=== PATIENT | female | born 1995 | race Caucasian/White ===

== ENCOUNTER 2022-02-23 12:58 | Outpatient (REF) | payer OTHER, SELFPAY ==
--- NOTE | ~2022-02-23 | US_ITS ---
EXAMINATION: US PELVIS CLINICAL INFORMATION: Cramping. Bloating. History of polycystic ovarian syndrome. COMPARISON: None TECHNIQUE: Ultrasound of the pelvis is performed using both transabdominal and transvaginal transducers along with Doppler. Transvaginal imaging is performed due to inadequate visualization transabdominally. FINDINGS: The uterus is anteverted and retroflexed and measures 7 x 3.1 x 3.4 cm in dimension. No focal uterine lesion is seen. Endometrial thickness is normal measuring 0.8 cm. The right ovary is slightly enlarged and measures 4.9 x 2.2 x 3.9 cm. The left ovary is normal in size and measures 3.6 x 1.5 x 4 cm. There are multiple small peripheral cysts or follicles seen in the ovaries and echogenic central stroma suggestive of polycystic ovarian syndrome. There is a 1.9 x 1.3 x 1.6 cm simple cyst or dominant follicle in the left ovary. There is a small amount of fluid in the pelvis. US/US pelvic and transvaginal IMPRESSION: Polycystic appearance of the ovaries. Normal-appearing uterus.
== END 2022-02-23 12:59 | disposition home or self-care (01) ==
LOC: HO.HMGCX 12:58
PROVIDERS: Visit Provider Advanced Practice Midwife
DX: R10.2 Pelvic and perineal pain (principal); R14.0 Abdominal distension (gaseous); E28.2 Polycystic ovarian syndrome
CPT/HCPCS: 76830; 76856

== ENCOUNTER 2022-06-23 10:18 | Outpatient (REF) | payer OTHER, SELFPAY ==
[2022-06-23 14:25] LABS: Hematocrit 41.4 % (37.0-47.0); Mean Corpuscular HGB Conc 31.4 g/dl (31.0-35.0); Mean Corpuscular Hemoglobin 26.3 pg (27.0-33.0); Mean Corpuscular Volume 83.8 fL (80.0-98.0); Mean Platelet Volume 10.1 fL (9.4-12.3); Platelet Count 287 X10*3/uL (160-400); Red Blood Count 4.94 X10*6/uL (4.20-5.50); Red Cell Distribution Width 12.8 % (11.0-16.0); White Blood Count 7.4 X10*3/uL (4.8-10.8)
[2022-06-23 14:38] LABS: Alanine Aminotransferase 29 U/L (0-31); Albumin Level 4.5 g/dL (3.5-5.0); Alkaline Phosphatase 46 U/L (39-117); Anion Gap 14 (12-20); Aspartate Amino Transferase 22 U/L (5-31); Bilirubin Total 0.5 mg/dL (0.0-1.0); Blood Urea Nitrogen 12 mg/dL (9-16); Calcium 9.1 mg/dL (8.4-10.2); Carbon Dioxide 26 mmol/L (22-29); Chloride 106 mmol/L (96-108); Cholesterol 161 mg/dL; Estimated Glomerular Filt Rate > 60; Glucose Fasting 90 mg/dL (60-99); HDL Cholesterol 41 mg/dL; LDL Cholesterol Calculated 100 mg/dl; Potassium 4.3 mmol/L (3.3-5.1); Sodium 142 mmol/L (135-145); Total Protein 7.4 g/dL (6.5-8.0); Triglycerides 102 mg/dL
[2022-06-23 14:48] LABS: TSH reflex Free T4 0.99 uIU/mL (0.32-4.0)
== END 2022-06-23 10:19 | disposition home or self-care (01) ==
LOC: HO.WFDLDS 10:18
PROVIDERS: Visit Provider Hospitalist
DX: Z00.00 Encounter for general adult medical examination without abnormal findings (principal)
CPT/HCPCS: 36415; 80053; 80061; 84443; 85027

== ENCOUNTER 2023-07-24 16:55 | Emergency (ER) | payer OTHER, SELFPAY ==
[2023-07-24 17:24] VITALS: BP 115/81; PULSE 69; RESP 18; TEMP 36.2; O2SAT 96; BMI 31.1
--- NOTE | 2023-07-24 17:27 | ED.GENADULT ---
HPI - General Adult General Chief complaint: General Medical Stated complaint: jaw pain Time Seen by Provider: 07/24/23 17:34 Source: patient Mode of arrival: ambulatory Limitations: no limitations History of Present Illness HPI narrative: 28 yo female previously healthy here with right sided jaw pain since yesterday worsened with opening her mouth. patient reports she tends to hold tension in her job. She is supposed to wear mouth car but she is not compliant with this. She does feel some right-sided jaw pain with radiation to the posterior right throat. No additional URI symptoms. No fevers or chills. No injury or trauma to the jaw. Related Data Home Medications Medication Instructions Recorded Confirmed medroxyprogesterone 10 mg tablet 10 mg PO DAILY 12/02/22 12/09/22 Previous Rx's Medication Instructions Recorded ibuprofen 800 mg tablet 800 mg PO Q8H #90 tabs 03/17/22 fluticasone propionate 50 2 spray intranasal DAILY 1 month 08/26/22 mcg/actuation nasal #16 grams spray,suspension (Allergy Relief (fluticasone)) loratadine 10 mg tablet (Allergy 10 mg PO DAILY #90 tabs 08/26/22 Relief (loratadine)) diazepam 2 mg tablet (Valium) 2 mg PO BID PRN muscle spasm #5 07/24/23 tabs ibuprofen 800 mg tablet 800 mg PO Q8H PRN pain #30 tabs 07/24/23 Allergies Allergy/AdvReac Type Severity Reaction Status Date / Time No Known Allergies Allergy Verified 07/24/23 17:24 Review of Systems Review of Systems: Yes all other systems are reviewed and are negative Constitutional: Constitutional: Reports no additional constitutional complaints, Denies body ache(s), Denies chills, Denies fever(s), Denies headache(s) and Denies weakness Eyes: Eyes: Reports no additional eye complaints and Denies change in vision ENT: Reports system reviewed and no additional complaints, except as documented, Denies dizziness, Denies headache(s), Denies nasal congestion, Denies nasal discharge, Denies neck pain and Reports other (jaw pain) Cardiovascular: Cardiovascular: Reports no additional cardiovascular complaints, Denies chest pain, Denies leg edema and Denies dyspnea Respiratory: Respiratory: Reports no additional respiratory complaints, Denies cough and Denies dyspnea Gastrointestinal: Gastrointestinal: Reports no additional gastrointestinal complaints, Denies abdominal pain, Denies diarrhea, Denies nausea and Denies vomiting Genitourinary: Genitourinary: Reports no additional female genitourinary complaints and Denies urinary incontinence Musculoskeletal: Musculoskeletal: Reports no additional musculoskeletal complaints, Denies back pain, Denies arthralgias, Denies joint swelling, Denies neck pain, Denies numbness and Denies tingling Integumentary/Breasts: Skin/Breast: Reports system reviewed and no additional complaints, except as docu and Denies rash Neurologic: Reports system reviewed and no additional complaints, except as documented, Denies Abnormal speech present, Denies dizziness, Denies headache(s), Denies numbness, Denies tingling and Denies weakness PMFSH Past Medical History Attestation statement: The following information was validated with the patient. Source: old records reviewed and nursing notes reviewed Surgical History History of lumpectomy of left breast Family History Family History Father Diabetes Asthma Hypertension Other No family history of mental disorder Social History Social History Household Members: Spouse Housing: Apartment Alcohol intake: never Patient Tobacco Use Status: Never used Tobacco e-Cigarette/Vaping Use: Never Used Advance Directives: No Advance Directives Information Provided: No Current occupational status: employed Current occupation: Human resources in [employer] Physical Exam ED Vital Signs: Vital Signs - 24 hr 07/24/23 17:24 Temperature 97.2 F Pulse Rate 69 Respiratory Rate 18 Blood Pressure 115/81 Pulse Oximetry 96 Oxygen Delivery Method Room Air BMI result Body Mass Index 31.1 Const General: cooperative Orientation/consciousness: patient oriented x3 Limitations: no limitations HENMT Head: Yes normal to inspection Ears: hearing grossly normal bilaterally and TM's normal bilaterally General nose exam: Normal external nose present Face and sinus: Yes normal facial exam Mouth: Normal oral and palatal mucosa present and other ( Tenderness to the right TMJ with no trismus) Throat: Yes posterior oropharynx normal, Yes tonsils normal and Yes uvula midline Eyes General: appearance normal, both eyes and all related structures Pupils: Equal, round and reactive pupils present Neck Neck: Yes normal visual inspection, Yes full ROM and Yes no lymphadenopathy Chest Chest palpation & inspection: normal inspection of the chest Resp Effort & Inspection: normal respiratory effort Auscultation: clear to auscultation bilaterally Cardio Rate: regular rate Rhythm: regular rhythm Peripheral pulses: Peripheral pulses 2+ throughout GI Inspection: Yes normal to inspection Palpation (GI): Soft to palpation and nontender Auscultation: normal bowel sounds Back/Spine/Pelvis Thoracic/Lumbar Spine: thoracic and lumbar spine normal to inspection Skin General skin exam: no rashes or lesions noted Neuro General: patient oriented x3, no focal motor deficits and normal sensation to monofilament Cranial nerves: Yes Equal, round and reactive pupils present Cognition (Neuro): normal cognition Speech: No Abnormal speech present Gait exam (Neuro): Normal gait present Motor exam (neuro): 5/5 motor strength present throughout Extrem General: Yes normal to inspection Course Course Course Narrative: RME: 28 yold female presents to the ED for RIght jaw pain. Patient states unable to open mouth all the way. patient states she usually clenches/grind her teeth while sleeping and woke up not able to open her mouth. patient denies any trauma, fever, chills, troubleing swalloing, or clicking sound of jaw. Positive on exam for slight swelling near jaw. no fluctulance on exam. To be asses in [facility]. Patient able to close and open mouth detention Medications Administered Discontinued Medications Generic Name Dose Route Start Last Admin Trade Name Franciscoq PRN Reason Stop Dose Admin Diazepam 2 mg 07/24/23 17:57 07/24/23 18:03 Diazepam 2 Mg Tablet PO 07/24/23 17:58 2 mg ONCE ONE Administration Ibuprofen 800 mg 07/24/23 17:57 07/24/23 18:03 Ibuprofen 800 Mg Tablet PO 07/24/23 17:58 800 mg ONCE ONE Administration Medical Decision Making Medical Decision Making MDM Narrative: 28 yo female previously healthy here with right sided jaw pain since yesterday worsened with opening her mouth. patient reports she tends to hold tension in her job. She is supposed to wear mouth car but she is not compliant with this. She does feel some right-sided jaw pain with radiation to the posterior right throat. No additional URI symptoms. No fevers or chills. No injury or trauma to the jaw. tenderness to the right TMJ which is worsened with opening the mouth with no trismus. Posterior oropharynx is normal in appearance. Likely TMJ dysfunction. Patient will be given a dose ibuprofen and Valium while she is here for discomfort. I will send her home with same. Reviewed worrisome signs and of when to return to the emergency room. Comfortable plan for discharge home. Differential Diagnosis Differential Diagnoses: The differential diagnosis associated with the presentation includes TMJ joint dysfunction Admission/Observation Consideration of admission/observation: Escalation of care including admission/observation considered no evidence of dislocation to suggest need for imaging or reduction Independent Historian Clinical information obtained from an independent historian. History obtained from or confirmed by: Friend Tests considered The following testing was considered but not selected: no evidence of dislocation reports of trauma to suggest need for imaging Discharge Plan Discharge Clinical Impression: TMJ inflammation Patient Disposition: Home, Self-Care Instructions: Temporomandibular Disorder (ED) Additional Instructions: Soft foods warm compresses and gentle massage consider getting a mouth guard once your symptoms are improved Prescriptions: New ibuprofen 800 mg tablet 800 mg PO Q8H PRN (Reason: pain) Qty: 30 0RF diazepam [Valium] 2 mg tablet 2 mg PO BID PRN (Reason: muscle spasm) Qty: 5 0RF Rx Instructions: partial fill per patient request No Action fluticasone propionate [Allergy Relief (fluticasone)] 50 mcg/actuation spray,suspension 2 spray intranasal DAILY 30 Days Qty: 16 5RF Rx Instructions: administer into each nostril loratadine [Allergy Relief (loratadine)] 10 mg tablet 10 mg PO DAILY Qty: 90 5RF medroxyprogesterone 10 mg tablet 10 mg PO DAILY ibuprofen 800 mg tablet 800 mg PO Q8H Qty: 90 1RF Referrals: Louis Palma MD [Primary Care Provider] - 1 week (as needed) Interventions: ED Discharge Assessment Last Done: 07/24/23 18:07 Discharge Date/Time: 07/24/23 18:07
[2023-07-24] MEDS: diazePAM 2 MG TABLET PO (18:03)
[2023-07-24] MEDS: Ibuprofen 800 MG TABLET PO (18:03)
== END 2023-07-24 18:07 | disposition home or self-care (01) ==
PROVIDERS: Emergency Provider Emergency Medicine Emergency Medical Services; PCP Internal Medicine
DX: M26.603 Bilateral temporomandibular joint disorder, unspecified (principal); R07.0 Pain in throat; Z79.899 Other long term (current) drug therapy
CPT/HCPCS: 99283

== ENCOUNTER 2023-08-12 13:55 | Outpatient (AMB) | payer OTHER, SELFPAY ==
--- NOTE | 2023-08-12 13:57 | MHC.PC.OV ---
Vital Signs 08/12/23 14:03 Height 5 ft 2 in Weight 181 lb 8 oz BMI 33.2 BP 112/78 Blood Pressure Location Rt brachial Position Sitting Pulse 74 Pulse Source Pulse Oximeter Pulse Oximetry (%) 98 Oxygen Delivery Method Room Air Intake Visit Reasons: Annual PE (Sharda former PCP) Allergies No Known Allergies Allergy (Verified 08/12/23 13:58) Medication List - Last Reconciled 08/12/23 by Louis Palma MD ibuprofen 800 mg PO Q8H Tobacco use date assessed: 08/12/23 Dental Screening Dental Screen Date: 08/12/23 Did you have a dental visit in the last 12 months?: Yes Did you have a dental problem in the last 6 months where you did not have access to dental care?: No Was dental information given to patient?: Patient has dentist HPI Annual PE (Sharda former PCP) HPI Details Patient is 28-year-old female with a history of PCOS Currently having irregular menstrual cycle and is in need OBGYN visit She is also complaining of feeling tired and having difficulty sleeping at night. Patient says that it could be because of her hormonal imbalance She does not monitor take any sleep aid. She is also stressed out because of work and studies. I have ordered labs for the patient she needs to do that fasting we will monitor hemoglobin and vitamin deficiencies along with metabolic profile and thyroid lipids. Her BMI is elevated at 33.2 I will be booking her appointment with the dietitian. Follow-up in 1 year for physical exam or earlier depending on the labs. [facility] Surgical History History of lumpectomy of left breast Family History Father Diabetes Asthma Hypertension Other No family history of mental disorder Social History Household Members: Spouse Housing: Apartment Alcohol intake: never Patient Tobacco Use Status: Never used Tobacco e-Cigarette/Vaping Use: Never Used Current occupational status: employed Current occupation: Human resources in [employer] Cognitive needs: No Hearing needs: No Vision needs: No Questionnaire PHQ-9 Over the last 2 weeks, how often have you been bothered by any of the following problems? 1. Little interest or pleasure in doing things: several days 2. Feeling down, depressed, or hopeless: several days 3. Trouble falling or staying asleep, or sleeping too much: more than half the days 4. Feeling tired or having little energy: more than half the days 5. Poor appetite or overeating: not at all 6. Feeling bad about yourself - or that you are a failure or have let yourself or your family down: not at all 7. Trouble concentrating on things, such as reading the newspaper or watching television: not at all 8. Moving or speaking so slowly that other people could have noticed. Or the opposite - being so fidgety or restless that you have been moving around a lot more than usual: not at all 9. Thoughts that you would be better off or of hurting yourself in some way: not at all Total score: 6 Depression Screening Interpretation: Positive Depression Screening Follow-up: Declines treatment Depression Screening Done: Yes 20243 - PHQ-9 Billing: Yes Source: Developed by Drs. Saqib Israel, Lisy Rose, Matt Barr and colleagues, with an educational orion from [employer]. Thrive Questionnaire Date Thrive assessed: 08/12/23 I am a: Patient What is your living situation today?: I have a steady place to live Within the past 12 months, did the food you bought not last and you didn't have the money to get more?: Sometimes True Within the past 12 months, did you worry whether your food would run out before you got money to buy more?: Sometimes True Do you have trouble paying for medicines?: No Do you have trouble getting transportation to medical appointments?: No Do you have trouble paying your heating and electricity bill?: No Do you have trouble taking care of your child, family member or friend?: No Do you have trouble with day-to-day activities such as bathing, preparing meals, shopping, managing finances, etc.?: No Are you currently unemployed and looking for a job?: No Are you interested in more education?: Yes PAT-7 AMB Questionnaire PAT-7 Date PAT - 7 assessed: 08/12/23 Feeling nervous, anxious, or on edge: 0 = Not at all Not being able to stop or control worryin = Several days Worrying too much about different things: 1 = Several days Trouble relaxin = Several days Being so restless that it is hard to sit still: 1 = Several days Becoming easily annoyed or irritable: 1 = Several days Feeling afraid as if something awful might happen: 0 = Not at all Total PAT-7 score (0-4 normal; 5-9 mild; 10-14 moderate; 15-21 severe): 5 Source: Developed by Drs. Saqib Israel, Lisy Rose, Matt Barr and colleagues, with an educational orion from [employer]. PAT-7 Assessment Billing PAT-7 Assessment Tool: PAT-7 Assessment [id number] Review of Systems Const Denies chills, Denies fever(s) and Denies headache(s) Eyes Denies blurry vision ENT Denies headache(s), Denies nasal discharge, Denies nasal obstruction, Denies odynophagia and Denies sinus pain Card Denies chest pain at rest and Denies chest pain with activity Resp Denies cough and Denies hemoptysis GI Denies diarrhea, Denies odynophagia, Denies vomiting and Denies hematemesis Reports as per HPI Musc Denies abnormal gait Skin/Breast Reports as per HPI Neuro Denies Neuro-related abnormal movements, Denies Abnormal speech present, Denies abnormal gait, Denies headache(s) and Denies Sensory deficit (Neuro) Psych Denies mood swings and Denies paranoia Endo Reports as per HPI Yony/Lymph Reports as per HPI Aller/Immun Reports as per HPI Physical exam (Primary Care) Vital Signs: Last Vital Signs Pulse 74 08/12/23 14:03 BP 112/78 08/12/23 14:03 Pulse Ox 98 08/12/23 14:03 Oxygen Delivery Method Room Air 08/12/23 14:03 BMI result Body Mass Index 33.2 Tobacco/Smoking Status: Tobacco use Status Tobacco use date assessed 08/12/23 08/12/23 14:00 Patient Tobacco Use Status Never used Tobacco 08/12/23 14:00 e-Cigarette/Vaping Use Never Used 08/12/23 14:00 PHQ-9: PHQ-9 Score PHQ-9: Total score 6 08/12/23 14:28 Depression Screening Interpretation: Positive Depression Screening Follow-up: Declines treatment Thrive Assessment: Date of Thrive Assessment Date Thrive assessed 08/12/23 08/12/23 14:28 Const General: cooperative, comfortable and no acute distress Orientation/consciousness: patient oriented x3 HENMT Head: Yes normocephalic and Yes atraumatic Eyes General: appearance normal, both eyes and all related structures Pupils: Equal, round and reactive pupils present EOM: EOMs intact bilaterally Neck Neck: Yes supple and No lymphadenopathy Thyroid: Thyroid normal Lymphatic: no lymphadenopathy noted Resp Effort & Inspection: normal respiratory effort and able to speak in complete sentences Auscultation: clear to auscultation bilaterally Cardio Heart sounds: S1 normal heart sound present and S2 normal heart sound present GI Palpation (GI): Soft to palpation and nontender Auscultation: normal bowel sounds General: Yes no CVA tenderness Back/Spine/Pelvis Back: no CVA tenderness Skin General skin exam: elasticity normal and turgor normal Neuro General: patient oriented x3 and gait normal Cranial nerves: Yes Equal, round and reactive pupils present Speech: No Abnormal speech present Sensory Exam: No Sensory deficit (Neuro) Coordination: tandem gait normal and Romberg test negative Extrem General: Yes normal exam except as noted and No edema Assessment and Plan Assessment & Plan (1) Encounter for general adult medical examination with abnormal findings: Code(s): Z00.01 - Encounter for general adult medical examination with abnormal findings (2) PCOS (polycystic ovarian syndrome): Code(s): E28.2 - Polycystic ovarian syndrome (3) Anxiety, generalized: Code(s): F41.1 - Generalized anxiety disorder (4) Dysfunctional uterine bleeding: Code(s): N93.8 - Other specified abnormal uterine and vaginal bleeding (5) Tired: Code(s): R53.83 - Other fatigue (6) Difficulty sleeping: Code(s): G47.9 - Sleep disorder, unspecified Plan Patient is 28-year-old female with a history of PCOS Currently having irregular menstrual cycle and is in need OBGYN visit She is also complaining of feeling tired and having difficulty sleeping at night. Patient says that it could be because of her hormonal imbalance She does not monitor take any sleep aid. She is also stressed out because of work and studies. Also suffers from mild anxiety but nothing that she cannot handle I have ordered labs for the patient she needs to do that fasting we will monitor hemoglobin and vitamin deficiencies along with metabolic profile and thyroid lipids. Her BMI is elevated at 33.2 I will be booking her appointment with the dietitian. Follow-up in 1 year for physical exam or earlier depending on the labs. Breast exam was not done today patient will have that done through OBGYN Orders: Orders Complete Blood Count Auto Diff Today E28.2 - Polycystic ovarian syndrome, F41.1 - Generalized anxiety disorder, G47.9 - Sleep disorder, unspecified, N93.8 - Other specified abnormal uterine and vaginal bleeding, R53.83 - Other fatigue, Z00.01 - Encounter for general adult medical examination with abnormal findings Lipid Panel Today E28.2 - Polycystic ovarian syndrome, F41.1 - Generalized anxiety disorder, G47.9 - Sleep disorder, unspecified, N93.8 - Other specified abnormal uterine and vaginal bleeding, R53.83 - Other fatigue, Z00.01 - Encounter for general adult medical examination with abnormal findings Vitamin D 25-OH (D2 and D3) Today E28.2 - Polycystic ovarian syndrome, F41.1 - Generalized anxiety disorder, G47.9 - Sleep disorder, unspecified, N93.8 - Other specified abnormal uterine and vaginal bleeding, R53.83 - Other fatigue, Z00.01 - Encounter for general adult medical examination with abnormal findings TSH reflex Free T4 Today E28.2 - Polycystic ovarian syndrome, F41.1 - Generalized anxiety disorder, G47.9 - Sleep disorder, unspecified, N93.8 - Other specified abnormal uterine and vaginal bleeding, R53.83 - Other fatigue, Z00.01 - Encounter for general adult medical examination with abnormal findings Comprehensive [place]. Panel Fast Today E28.2 - Polycystic ovarian syndrome, F41.1 - Generalized anxiety disorder, G47.9 - Sleep disorder, unspecified, N93.8 - Other specified abnormal uterine and vaginal bleeding, R53.83 - Other fatigue, Z00.01 - Encounter for general adult medical examination with abnormal findings Vitamin B12 Today E28.2 - Polycystic ovarian syndrome, F41.1 - Generalized anxiety disorder, G47.9 - Sleep disorder, unspecified, N93.8 - Other specified abnormal uterine and vaginal bleeding, R53.83 - Other fatigue, Z00.01 - Encounter for general adult medical examination with abnormal findings Referrals [facility] Referral E28.2 - Polycystic ovarian syndrome, N93.8 - Other specified abnormal uterine and vaginal bleeding Coding Level of Care Code Est Pt Prev Care 18-39y([id number]) Diagnoses Encounter for general adult medical examination with abnormal findings Z00.01 PCOS (polycystic ovarian syndrome) E28.2 Anxiety, generalized F41.1 Dysfunctional uterine bleeding N93.8 Tired R53.83 Difficulty sleeping G47.9 Additional Codes PAT-7 Assessment Billing - PAT-7 Assessment Tool: PAT-7 Assessment [id number] ([id number])
[2023-08-12 14:03] VITALS: BP 112/78; PULSE 74; O2SAT 98; BMI 33.2
== END 2023-08-12 14:25 | disposition home or self-care (01) ==
PROVIDERS: Visit Provider Internal Medicine
DX: Z00.00 Encounter for general adult medical examination without abnormal findings (principal); E28.2 Polycystic ovarian syndrome; F41.1 Generalized anxiety disorder; N93.8 Other specified abnormal uterine and vaginal bleeding; R53.83 Other fatigue; G47.9 Sleep disorder, unspecified
CPT/HCPCS: 99395

== ENCOUNTER 2023-08-13 10:22 | Outpatient (REF) | payer OTHER, SELFPAY ==
[2023-08-13 10:39] LABS: MANUAL DIFF FLAG NO
[2023-08-13 11:13] LABS: Basophils Percent Auto 0.5 % (0-2); Eosinophils Absolute Auto 0.1 X10*3/uL (0.0-0.4); Eosinophils Percent Auto 1.6 % (0-4); Hematocrit 42.4 % (37.0-47.0); Hemoglobin 13.5 g/dl (12.0-16.0); Imm Gran Abs Auto 0.03 X10*3/uL (0.00-0.03); Imm Gran Pct Auto 0.4 % (0.0-0.4); Lymphocytes Absolute Auto 2.2 X10*3/uL (1.2-4.9); Lymphocytes Percent Auto 26.7 % (20-40); Mean Corpuscular HGB Conc 31.8 g/dl (31.0-35.0); Mean Corpuscular Hemoglobin 26.8 pg (27.0-33.0); Mean Corpuscular Volume 84.3 fL (80.0-98.0); Mean Platelet Volume 9.8 fL (9.4-12.3); Monocytes Absolute Auto 0.7 X10*3/uL (0.1-1.2); Neutrophils Absolute Auto 5.1 x10*3/uL (2.0-8.3); Neutrophils Percent Auto 62.8 % (45-73); Platelet Count 301 X10*3/uL (160-400); Red Blood Count 5.03 X10*6/uL (4.20-5.50); Red Cell Distribution Width 12.9 % (11.0-16.0); White Blood Count 8.2 X10*3/uL (4.8-10.8)
[2023-08-13 11:36] LABS: Alanine Aminotransferase 53 U/L (0-31); Albumin Level 4.6 g/dL (3.5-5.0); Alkaline Phosphatase 51 U/L (39-117); Anion Gap 13 (12-20); Aspartate Amino Transferase 32 U/L (5-31); Bilirubin Total 0.6 mg/dL (0.0-1.0); Blood Urea Nitrogen 12 mg/dL (9-16); Calcium 9.6 mg/dL (8.4-10.2); Carbon Dioxide 26 mmol/L (22-29); Chloride 106 mmol/L (96-108); Cholesterol 167 mg/dL (<200); Estimated Glomerular Filt Rate > 60; Glucose Fasting 105 mg/dL (60-99); HDL Cholesterol 34 mg/dL (>40); LDL Cholesterol Calculated 91 mg/dL (<100); Potassium 4.2 mmol/L (3.3-5.1); Sodium 141 mmol/L (135-145); Total Protein 7.8 g/dL (6.5-8.0); Triglycerides 212 mg/dL (<150)
[2023-08-13 11:52] LABS: TSH reflex Free T4 1.13 uIU/mL (0.32-4.0)
[2023-08-13 11:58] LABS: Vitamin B12 415 pg/mL (200-900)
[2023-08-18 12:27] LABS: Vitamin D 25-OH, D2 <4 ng/mL; Vitamin D 25-OH, D3 12 ng/mL; Vitamin D 25-OH, Total 12 ng/mL (30-100)
== END 2023-08-13 10:23 | disposition home or self-care (01) ==
LOC: HO.LAB 10:22
PROVIDERS: PCP Internal Medicine; Visit Provider Internal Medicine
DX: Z00.01 Encounter for general adult medical examination with abnormal findings (principal); E28.2 Polycystic ovarian syndrome; F41.1 Generalized anxiety disorder; N93.8 Other specified abnormal uterine and vaginal bleeding; R53.83 Other fatigue; G47.9 Sleep disorder, unspecified
CPT/HCPCS: 36415; 80053; 80061; 82306; 82607; 84443; 85025

== ENCOUNTER 2023-08-18 08:42 | Outpatient (AMB) | payer OTHER, SELFPAY ==
--- NOTE | 2023-08-18 10:46 | MHC.PC.OV ---
Intake Visit Reasons: f/u labs [phone] iPhone Allergies No Known Allergies Allergy (Verified 08/18/23 10:46) Medication List - Last Reconciled 08/18/23 by Louis Palma MD ibuprofen 800 mg PO Q8H Tobacco use date assessed: 08/18/23 Dental Screening Dental Screen Date: 08/18/23 Did you have a dental visit in the last 12 months?: Yes Did you have a dental problem in the last 6 months where you did not have access to dental care?: No Was dental information given to patient?: Patient has dentist HPI f/u labs [phone] iPhone HPI Details Patient is 28-year-old female this is a telemedicine follow-up to go over lab reports Patient have polycystic ovarian syndrome, her fasting sugar came back at 01:04 Discussed with the patient it is very important that she eat healthy and avoid sugar The most of all the maintain ideal body weight, patient's BMI is above 30 Her liver enzymes also came back slightly elevated compared to last year when they were normal Most likely secondary to fatty liver She has no abdominal pain no nausea vomiting I am ordering labs to be repeated in 3 months. [facility] Surgical History History of lumpectomy of left breast Family History Father Diabetes Asthma Hypertension Other No family history of mental disorder Social History Household Members: Spouse Housing: Apartment Alcohol intake: never Patient Tobacco Use Status: Never used Tobacco e-Cigarette/Vaping Use: Never Used Current occupational status: employed Current occupation: Human resources in [employer] Cognitive needs: No Hearing needs: No Vision needs: No Questionnaire Thrive Questionnaire Date Thrive assessed: 08/12/23 AUDIT C Alcohol Use Questionnaire (AUDIT-C) 1. How often do you have a drink containing alcohol?: Never 3. How often do you have six or more drinks on one occasion?: Never Total Score: 0 Score Reviewed/Action Taken: Yes PAT-7 AMB Questionnaire PAT-7 Date PAT - 7 assessed: 08/12/23 Source: Developed by Drs. Saqib Israel, Lisy B.W. Matt Rose and colleagues, with an educational orion from [employer]. Review of Systems Const Denies chills and Denies fever(s) ENT Denies epistaxis and Denies nasal discharge Card Denies chest pain Resp Denies chest congestion, Denies cough and Denies hemoptysis GI Denies diarrhea and Denies nausea Skin/Breast Denies rash Neuro Reports no additional complaints Psych Reports no additional complaints Endo Reports no additional complaints Physical exam (Primary Care) Tobacco/Smoking Status: Tobacco use Status Tobacco use date assessed 08/18/23 08/18/23 10:46 Patient Tobacco Use Status Never used Tobacco 08/18/23 10:46 e-Cigarette/Vaping Use Never Used 08/18/23 10:46 Thrive Assessment: Date of Thrive Assessment Date Thrive assessed 08/12/23 08/18/23 10:46 Telehealth Telehealth Location of provider rendering services: practice address Location of patient: address on file Patient Identification confirmed using: Name, : Yes Telehealth method: voice only Patient verbally consented to treatment: Yes Patient verbally consented to billing insurance company: Yes Patient informed of any privacy concerns related to visit: Yes Minutes spent on Phone/Video with Pt.: 13 Assessment and Plan Assessment & Plan (1) LFT elevation: Code(s): R79.89 - Other specified abnormal findings of blood chemistry (2) Pre-diabetes: Code(s): R73.03 - Prediabetes (3) BMI 31.0-31.9,adult: Code(s): Z68.31 - Body mass index [BMI] 31.0-31.9, adult Plan Patient is 28-year-old female this is a telemedicine follow-up to go over lab reports Patient have polycystic ovarian syndrome, her fasting sugar came back at 01:04 Discussed with the patient it is very important that she eat healthy and avoid sugar The most of all the maintain ideal body weight, patient's BMI is above 30 Her liver enzymes also came back slightly elevated compared to last year when they were normal Most likely secondary to fatty liver She has no abdominal pain no nausea vomiting I am ordering labs to be repeated in 3 months. Orders: Orders Liver Panel Today R73.03 - Prediabetes, R79.89 - Other specified abnormal findings of blood chemistry, Z68.31 - Body mass index [BMI] 31.0-31.9, adult Hemoglobin A1c Today R73.03 - Prediabetes, R79.89 - Other specified abnormal findings of blood chemistry, Z68.31 - Body mass index [BMI] 31.0-31.9, adult Coding Level of Care Code Tele Est Pt Level 3 (38552) Diagnoses LFT elevation R79.89 Pre-diabetes R73.03 BMI 31.0-31.9,adult Z68.31
== END 2023-08-18 12:09 | disposition home or self-care (01) ==
PROVIDERS: PCP Internal Medicine; Visit Provider Internal Medicine
DX: R79.89 Other specified abnormal findings of blood chemistry (principal); R73.03 Prediabetes; Z68.31 Body mass index [BMI] 31.0-31.9, adult
CPT/HCPCS: 99213

== ENCOUNTER 2023-11-11 14:58 | Outpatient (AMB) | payer OTHER, SELFPAY ==
[2023-11-11 15:00] VITALS: BP 126/82; PULSE 91; O2SAT 96; BMI 33.7
--- NOTE | 2023-11-11 15:00 | MHC.PC.OV ---
Vital Signs 11/11/23 15:00 Height 5 ft 2 in Weight 184 lb 6 oz BMI 33.7 BP 126/82 Blood Pressure Location Lt brachial Position Sitting Pulse 91 Pulse Source Pulse Oximeter Pulse Oximetry (%) 96 Oxygen Delivery Method Room Air Intake Visit Reasons: abd cramping x 2 weeks, fatigue Allergies No Known Allergies Allergy (Verified 11/11/23 15:03) Medication List - Last Reconciled 11/11/23 by Louis Palma MD ibuprofen 400 mg PO Q8H 90 days Tobacco use date assessed: 11/11/23 Dental Screening Dental Screen Date: 12/07/23 HPI abd cramping x 2 weeks, fatigue HPI Details Patient is 28-year-old female She has not had menstrual cycle in 3 months, around [place] time she started having abdominal cramping Patient says that it feels as if she is about to get. But it has not started She has an appointment with OBGYN coming up end of this month Patient says that because of cramping she is having migraine headache which present with right-sided eye pain She is requesting refill for ibuprofen which I have sent I have ordered blood test along with UA to rule out any signs of bladder infection PFSH Surgical History History of lumpectomy of left breast Family History Father Diabetes Asthma Hypertension Other No family history of mental disorder Social History Household Members: Spouse Housing: Apartment Alcohol intake: never Patient Tobacco Use Status: Never used Tobacco e-Cigarette/Vaping Use: Never Used Current occupational status: employed Current occupation: Human resources in [employer] Cognitive needs: No Hearing needs: No Vision needs: No Questionnaire Thrive Questionnaire Date Thrive assessed: 08/12/23 AUDIT C Alcohol Use Questionnaire (AUDIT-C) 1. How often do you have a drink containing alcohol?: Never 3. How often do you have six or more drinks on one occasion?: Never Total Score: 0 Score Reviewed/Action Taken: Yes PAT-7 AMB Questionnaire PAT-7 Date PAT - 7 assessed: 08/12/23 Source: Developed by Drs. Saqib Israel, Lisy Rose, Matt Barr and colleagues, with an educational orion from [employer]. Review of Systems Const Denies chills and Denies fever(s) ENT Denies epistaxis and Denies nasal discharge Card Denies chest pain Resp Denies chest congestion, Denies cough and Denies hemoptysis GI Denies diarrhea and Denies nausea Skin/Breast Denies rash Neuro Reports no additional complaints Psych Reports no additional complaints Endo Reports no additional complaints Physical exam (Primary Care) Vital Signs: Last Vital Signs Pulse 91 11/11/23 15:00 BP 126/82 11/11/23 15:00 Pulse Ox 96 11/11/23 15:00 Oxygen Delivery Method Room Air 11/11/23 15:00 BMI result Body Mass Index 33.7 Tobacco/Smoking Status: Tobacco use Status Tobacco use date assessed 11/11/23 11/11/23 15:03 Patient Tobacco Use Status Never used Tobacco 11/11/23 15:03 e-Cigarette/Vaping Use Never Used 11/11/23 15:03 Thrive Assessment: Date of Thrive Assessment Date Thrive assessed 08/12/23 11/11/23 15:03 Const General: cooperative, comfortable and no acute distress Orientation/consciousness: patient oriented x3 HENMT Head: Yes normocephalic Eyes General: appearance normal, both eyes and all related structures Neck Neck: Yes supple Resp Effort & Inspection: normal respiratory effort, no cough and no stridor Cardio Rhythm: regular rhythm Heart sounds: S1 normal heart sound present and S2 normal heart sound present GI Other: Abdomen is benign Skin General skin exam: turgor normal Neuro General: patient oriented x3, tone normal and moves all extremities Extrem Right lower extremity: no edema Left lower extremity: no edema Assessment and Plan Assessment & Plan (1) Pelvic pain: Code(s): R10.2 - Pelvic and perineal pain (2) Missed period: Code(s): N92.6 - Irregular menstruation, unspecified (3) Migraine headache: Code(s): G43.909 - Migraine, unspecified, not intractable, without status migrainosus Qualifiers: Migraine type: menstrual Status migrainosus presence: without status migrainosus Intractability: intractable Qualified Code(s): G43.839 - Menstrual migraine, intractable, without status migrainosus (4) Obesity due to excess calories: Code(s): E66.09 - Other obesity due to excess calories Qualifiers: Obesity classification: adult class 1 (BMI 30 - 34.9) Serious obesity comorbidity presence: without serious comorbidity Body mass index: BMI 33.0-33.9 Qualified Code(s): E66.09 - Other obesity due to excess calories; Z68.33 - Body mass index [BMI] 33.0-33.9, adult Plan Patient is 28-year-old female She has not had menstrual cycle in 3 months, around [place] time she started having abdominal cramping Patient says that it feels as if she is about to get. But it has not started She has an appointment with OBGYN coming up end of this month Patient says that because of cramping she is having migraine headache which present with right-sided eye pain She is requesting refill for ibuprofen which I have sent I have ordered blood test along with UA to rule out any signs of bladder infection Her BMI is elevated as well need to lose weight Orders: Orders UA CC w/rflx Micro + Cult Today N92.6 - Irregular menstruation, unspecified, R10.2 - Pelvic and perineal pain HCG Quantitative Today N92.6 - Irregular menstruation, unspecified, R10.2 - Pelvic and perineal pain Medications: Changed From ibuprofen 800 mg PO Q8H 90 tabs 1RF S03.40XA - Sprain of jaw, unspecified side, initial encounter To ibuprofen 400 mg PO Q8H 270 tabs 0RF 90 days S03.40XA - Sprain of jaw, unspecified side, initial encounter Coding Level of Care Code Est Pt Level 4 (62675) Diagnoses Pelvic pain R10.2 Missed period N92.6 Intractable menstrual migraine without status migrainosus G43.839 Migraine type: menstrual Status migrainosus presence: without status migrainosus Intractability: intractable Class 1 obesity due to excess calories without serious comorbidity with body mass index (BMI) of 33.0 to 33.9 in adult E66.09; Z68.33 Obesity classification: adult class 1 (BMI 30 - 34.9) Serious obesity comorbidity presence: without serious comorbidity Body mass index: BMI 33.0-33.9
== END 2023-11-11 15:58 | disposition home or self-care (01) ==
PROVIDERS: PCP Internal Medicine; Visit Provider Internal Medicine
DX: R10.2 Pelvic and perineal pain (principal); N92.6 Irregular menstruation, unspecified; G43.839 Menstrual migraine, intractable, without status migrainosus; E66.09 Other obesity due to excess calories; Z68.33 Body mass index [BMI] 33.0-33.9, adult
CPT/HCPCS: 99214

== ENCOUNTER 2023-11-11 15:12 | Outpatient (REF) | payer OTHER, SELFPAY ==
[2023-11-11 16:12] LABS: Appearance Urine Clear; Color Urine Yellow; Glucose Urine UA Negative (Negative); Leukocyte Esterase Urine Negative (Negative); Nitrite Urine Negative (Negative); PH 5.5 (5.0-9.0); Specific Gravity - Urine 1.025 (1.005-1.025); Urine Blood Negative (Negative); Urine Ketones Negative (Negative); Urine Protein Negative (Neg-Trace)
[2023-11-11 18:26] LABS: HCG Quantitative < 2 mIU/mL
== END 2023-11-11 15:13 | disposition home or self-care (01) ==
LOC: HO.HMGCLDS 15:12
PROVIDERS: PCP Internal Medicine; Visit Provider Internal Medicine
DX: R10.2 Pelvic and perineal pain (principal); N92.6 Irregular menstruation, unspecified
CPT/HCPCS: 36415; 81003; 84702

== ENCOUNTER 2023-12-12 09:49 | Outpatient (AMB) | payer OTHER, SELFPAY ==
--- NOTE | 2023-12-12 10:01 | AM.OFFWIN_ITS ---
Intake Vital Signs 12/12/23 10:03 Height 5 ft 2 in Weight 188 lb BMI 34.4 BP 126/76 Blood Pressure Location Rt brachial Position Sitting Pulse 70 Pulse Source Pulse Oximeter Temp 98 F Temp Source Oral Pulse Oximetry (%) 98 Oxygen Delivery Method Room Air Intake Visit Reasons: EP both eyes swollen/rash spreading Intake Note: Pt is here c/o bilateral swollen eyes. Pt also has a rash spreading on both eyes. Pt states dryness of the skin under the eye started at the end of September and has not gotten worse. Patient Tobacco Use Status: Never used Tobacco Allergies No Known Allergies Allergy (Verified 12/12/23 10:06) Do you need a note to return to daycare/school/sports/work: Yes HPI HPI Comments History of Present Illness Details Patient presents to the walkin today for sick visit endorses dry skin, redness to skin below both eyes started 2 months ago and seems to be getting worse denies pain or itching. denies vision disturbance denies new face wash, creams, lotions, perfumes, makeup has been applying moisturizer but symptoms persist denies other rashes, cough, fevers, bodyaches, joint pains denies chest pain or shortness of breath PFSH Surgical History History of lumpectomy of left breast Family History Father Diabetes Asthma Hypertension Other No family history of mental disorder Social History Household Members: Spouse Housing: Apartment Alcohol intake: never Patient Tobacco Use Status: Never used Tobacco e-Cigarette/Vaping Use: Never Used Current occupational status: employed Current occupation: Human resources in [employer] Cognitive needs: No Hearing needs: No Vision needs: No Review of Systems Const All systems reviewed & are unremarkable except as noted in HPI and below Physical Exam Vital Signs: Last Vital Signs Temp 98 F 12/12/23 10:03 Pulse 70 12/12/23 10:03 BP 126/76 12/12/23 10:03 Pulse Ox 98 12/12/23 10:03 Oxygen Delivery Method Room Air 12/12/23 10:03 BMI result Body Mass Index 34.4 General: awake, alert, oriented. Answers questions appropriately. Fully engaged in examination. Skin: warm, dry, intact. dry skin noted below both eyes, small patch dry skin to both upper eyelids. without erythema or exudate. no periorbital edema noted. HEENT: Normocephalic. Hearing intact. speech clear Cardiac: External chest normal in appearance. Respiratory: No cough, audible wheezing or stridor. LSCTAB Abdomen: without gross distension. MS: No obvious swelling or deformities. Neurological: Oriented to person, place, time and situation. Thought process intact. Psychiatric: Appropriate mood and affect. Good judgment and insight. Assessment & Plan Assessment & Plan (1) Eczema: Code(s): L30.9 - Dermatitis, unspecified Plan Eczema: referral placed to dermatology hydrocortisone 2.5% topical, apply as directed Follow up with dermatology Follow up with pcp or at walk-in for any new or worsening symptoms All questions and concerns were answered, patient agrees with plan. Orders: Referrals Dermatology Referral L30.9 - Dermatitis, unspecified Medications: New hydrocortisone 2.5% 1 appl topical BID 30 grams 0RF Coding Level of Care Code Est Pt Level 4 (99515) Diagnoses Eczema L30.9
[2023-12-12 10:03] VITALS: BP 126/76; PULSE 70; TEMP 36.6; O2SAT 98; BMI 34.4
== END 2023-12-12 11:00 | disposition home or self-care (01) ==
PROVIDERS: PCP Internal Medicine; Visit Provider Registered Nurse Emergency
DX: L30.9 Dermatitis, unspecified (principal)
CPT/HCPCS: 99213

== ENCOUNTER 2023-12-16 14:29 | Outpatient (REF) | payer OTHER, SELFPAY ==
--- NOTE | ~2023-12-16 | US_ITS ---
EXAMINATION: US PELVIS WITH TRANSVAGINAL CLINICAL INFORMATION: Irregular menses, on and off spotting, denies pain. COMPARISON: Pelvic ultrasound 02/23/2022. TECHNIQUE: Ultrasound of the pelvis is performed using both transabdominal and transvaginal transducers along with Doppler. Transvaginal imaging is performed due to inadequate visualization transabdominally. FINDINGS: The uterus measures 6.4 x 2.7 x 3.8 cm. No discrete fibroids identified. Endometrial thickness is 4 mm. Right ovary measures 4.7 x 2.1 x 2.6 cm, volume 13.1 mL. Right ovary is unremarkable. Left ovary measures 3.6 x 1.9 x 3.5 cm, volume 12.2 mL and is unremarkable. Trace amount of free fluid is identified adjacent to the left ovary. US/US pelvic and transvaginal IMPRESSION: 1. Unremarkable uterus and bilateral ovaries. 2. Endometrial thickness is 4 mm. 3. Trace amount of free fluid adjacent to the left ovary.
== END 2023-12-16 14:30 | disposition home or self-care (01) ==
LOC: HO.HMGCX 14:29
PROVIDERS: PCP Internal Medicine; Visit Provider Advanced Practice Midwife
DX: N92.6 Irregular menstruation, unspecified (principal); E28.2 Polycystic ovarian syndrome
CPT/HCPCS: 76830; 76856